=== PATIENT | male | born 1970 | race African-American/Black ===

== ENCOUNTER 2022-05-05 12:58 | Emergency (ER) | payer BC, SELFPAY ==
--- NOTE | 2022-05-05 13:59 | RAD REPORT ---
EXAM DESCRIPTION: RAD - Chest Single View - 05/05/2022 1:43 pm CLINICAL HISTORY: Cough COMPARISON: No comparisons FINDINGS: Lines: None. Lungs: No evidence of edema or pneumonia. Pleural: No significant pleural effusions or pneumothorax. Cardiac: The heart size is within normal limits. Mediastinum: Within normal limits. Bones: No acute fractures. Other: None IMPRESSION: No acute cardiopulmonary disease.
[2022-05-05 14:01] LABS: Absolute Lymphocytes (CBC) 1.3 K/uL (0.7-4.9); Hematocrit 46.4 % (39.6-49.0); Lymphocytes % 22.5 % (15.3-44.8); MCV 85.9 fL (80-100); MPV 8.3 fL (7.6-11.3)
[2022-05-05 14:21] LABS: Albumin 3.9 g/dL (3.4-5.0); Bilirubin Direct 0.1 mg/dL (0-0.2); Bilirubin Total 0.4 mg/dL (0.2-1.0); Potassium 4.1 mmol/L (3.5-5.1); Protein, Total 7.5 g/dL (6.4-8.2); Troponin High Sensitivity 4.8 pg/mL (<58.9)
[2022-05-05 15:52] LABS: SARS-COV-2 RT PCR POSITIVE (NEGATIVE)
--- NOTE | 2022-05-05 15:59 | ER ---
Nurse's Notes [facility] Name: Jaydon Jolly Jr Age: 52 yrs Sex: Male : 1970 Arrival Date: 05/05/2022 Time: 12:59 Bed 13 Private MD: Diagnosis: COVID-19, Hypertension, Fatigue Presentation: 05/05 13:21 Chief complaint: Patient states: he has been having high blood pressure, increased ap3 fatigue, intermittent chest pain, cough and congestion for "a couple weeks" patient also reports body aches. Coronavirus screen: At this time, the client does not indicate any symptoms associated with coronavirus-19. Ebola Screen: No symptoms or risks identified at this time. Initial Sepsis Screen: Does the patient meet any 2 criteria? No. Patient's initial sepsis screen is negative. Does the patient have a suspected source of infection? No. Patient's initial sepsis screen is negative. Risk Assessment: Do you want to hurt yourself or someone else? Patient reports no desire to harm self or others. Onset of symptoms is unknown. 13:21 Method Of Arrival: Ambulatory ap3 13:21 Acuity: CASTILLO 3 ap3 Triage Assessment: 13:24 General: Appears in no apparent distress. Behavior is calm, cooperative, appropriate ap3 for age. Pain: Complains of pain in chest, and generalized body aches. Neuro: Level of Consciousness is awake, alert, obeys commands, Oriented to person, place, time, situation, Gait is steady. Cardiovascular: Reports chest pain, Denies shortness of breath, Patient's skin is warm and dry. Respiratory: Airway is patent Respiratory effort is even, unlabored, Respiratory pattern is regular, symmetrical. Historical: - Allergies: 13:23 No Known Allergies; ap3 - Home Meds: 13:23 metoprolol tartrate 25 mg Oral tab [Active]; lisinopril 20 mg Oral tab [Active]; ap3 - PMHx: 13:23 Hypertensive disorder; Hypercholesterolemia; ap3 - Immunization history:: Client reports having NOT received the Covid vaccine. Flu vaccine is not up to date. - Social history:: Smoking status: Patient denies any tobacco usage or history of. Screenin:25 Humpty Dumpty Scale Fall Assessment Tool (age< 18yrs) Age 13 years and above (1 pt). ap3 14:07 [facility] ED Fall Risk Assessment (Adult) History of falling in the last 3 months, ko1 including since admission No falls in past 3 months (0 pts) Confusion or Disorientation No (0 pts) Intoxicated or Sedated No (0 pts) Impaired Gait No (0 pts) Mobility Assist Device Used No (0 pt) Altered Elimination No (0 pt) Score/Fall Risk Level 0 - 2 = Low Risk. Abuse screen: Denies threats or abuse. Denies injuries from another. Nutritional screening: No deficits noted. Tuberculosis screening: No symptoms or risk factors identified. Fall Risk No fall in past 12 months (0 pts). Assessment: 13:50 General: Appears in no apparent distress. comfortable, Behavior is calm, cooperative, ko1 appropriate for age. Pain: Pain does not radiate. Pain began gradually. Neuro: No deficits noted. Cardiovascular: Reports chest pain, fatigue. Respiratory: No deficits noted. GI: No deficits noted. : No deficits noted. EENT: No deficits noted. Derm: No deficits noted. Musculoskeletal: No deficits noted. Vital Signs: 13:21 BP 125 / 91; Pulse 89; Resp 18; Temp 98.7(O); Pulse Ox 99% ; Weight 104.33 kg; Height 5 ap3 ft. 8 in. (172.72 cm); Pain 6/10; 14:07 BP 117 / 91; ko1 15:26 BP 114 / 78; Pulse 82; Pulse Ox 100% ; ko1 16:07 BP 115 / 82; Pulse 80; ko1 13:21 Body Mass Index 34.97 (104.33 kg, 172.72 cm) ap3 ED Course: 12:59 Patient arrived in ED. as 13:19 Aga Plaza MD is Attending Physician. sp3 13:23 Triage completed. ap3 13:25 Arm band placed on right wrist. ap3 13:25 Patient maintains SpO2 saturation greater than 95% on room air. ap3 13:26 Elmira Davis, JESSIE is Primary Nurse. ko1 13:45 XRAY Chest (1 view) In Process Unspecified. EDMS 13:50 Inserted saline lock: 20 gauge in left antecubital area, using aseptic technique. Blood ko1 collected. 13:53 Basic Metabolic Panel Sent. ko1 13:54 CBC with Diff Sent. ko1 13:54 LFT's Sent. ko1 13:54 NT PRO-BNP Sent. ko1 13:54 Troponin HS Sent. ko1 13:54 COVID-19/FLU A+B Sent. ko1 14:07 Patient has correct armband on for positive identification. Bed in low position. Call ko1 light in reach. Side rails up X 1. Client placed on continuous cardiac and pulse oximetry monitoring. NIBP monitoring applied. manager monitoring on. 14:07 No provider procedures requiring assistance completed. ko1 16:07 IV discontinued, intact, bleeding controlled, No redness/swelling at site. Pressure ko1 dressing applied. Administered Medications: No medications were administered Medication: 13:50 VIS not applicable for this client. ko1 Outcome: 15:58 Discharge ordered by . sp3 16:07 Discharged to home ambulatory. ko1 16:07 Condition: stable 16:07 Discharge instructions given to patient, Instructed on discharge instructions, follow up and referral plans. Demonstrated understanding of instructions, follow-up care. 16:08 Patient left the ED. ko1 Signatures: Dispatcher [employer] Sepideh Gupta Amanda, RN RN ap3 Aga Plaza MD MD sp3 Elmira Davis RN RN ko1
--- NOTE | 2022-05-05 15:59 | EDPHYS ---
Physician Documentation [facility] Name: Jaydon Jolly Jr Age: 52 yrs Sex: Male : 1970 Arrival Date: 05/05/2022 Time: 12:59 Bed 13 Private MD: ED Physician Aga Plaza HPI: 05/05 13:49 This 52 yrs old Black Male presents to ER via Ambulatory with complaints of High Blood sp3 Pressure, Chest Pain, Fatigue. 13:49 52-year-old male with history of hypertension and hyperlipidemia from [address], here visiting in [place] presents with chief complaint chest pain for the last 48 hours with off-and-on cough for approximately 2 weeks. Patient had a positive COVID 19 home test 2 weeks ago. He also complains of fatigue and episodic hypertension particularly at night with systolics increasing into the 180 range. Currently the chest pain is mild to absent denies left arm pain or numbness, jaw pain, nausea, epigastric pain, back pain, shortness of breath, fever, any other symptoms on ROS at this time. He denies history of ACS, STEMI, or any heart disease. No history of pulmonary embolism and patient does not smoke.. Historical: - Allergies: 13:23 No Known Allergies; ap3 - Home Meds: 13:23 metoprolol tartrate 25 mg Oral tab [Active]; lisinopril 20 mg Oral tab [Active]; ap3 - PMHx: 13:23 Hypertensive disorder; Hypercholesterolemia; ap3 - Immunization history:: Client reports having NOT received the Covid vaccine. Flu vaccine is not up to date. - Social history:: Smoking status: Patient denies any tobacco usage or history of. ROS: 13:51 Constitutional: Negative for fever, chills, and weight loss, Eyes: Negative for injury, sp3 pain, redness, and discharge, ENT: Negative for injury, pain, and discharge, Neck: Negative for injury, pain, and swelling, Abdomen/GI: Negative for abdominal pain, nausea, vomiting, diarrhea, and constipation, Back: Negative for injury and pain, MS/Extremity: Negative for injury and deformity, Skin: Negative for injury, rash, and discoloration, Neuro: Negative for headache, weakness, numbness, tingling, and seizure, Psych: Negative for depression, anxiety, suicide ideation, homicidal ideation, and hallucinations, Allergy/Immunology: Negative for hives, rash, and allergies, Endocrine: Negative for neck swelling, polydipsia, polyuria, polyphagia, and marked weight changes. 13:51 All other systems are negative. Exam: 13:51 Constitutional: This is a well developed, well nourished patient who is awake, alert, sp3 and in no acute distress. Head/Face: Normocephalic, atraumatic. Eyes: Pupils equal round and reactive to light, extra-ocular motions intact. Lids and lashes normal. Conjunctiva and sclera are non-icteric and not injected. Cornea within normal limits. Periorbital areas with no swelling, redness, or edema. ENT: Nares patent. No nasal discharge, no septal abnormalities noted. External auditory canals are clear. Oropharynx with no redness, swelling, or masses, exudates, or evidence of obstruction, uvula midline. Mucous membranes moist. Neck: Trachea midline, no thyromegaly or masses palpated, and no cervical lymphadenopathy. Supple, full range of motion without nuchal rigidity, or vertebral point tenderness. No Meningismus. Chest/axilla: Normal chest wall appearance and motion. Nontender with no deformity. No lesions are appreciated. Cardiovascular: Regular rate and rhythm with a normal S1 and S2. No gallops, murmurs, or rubs. Normal PMI, no JVD. No pulse deficits. Abdomen/GI: Soft, non-tender, with normal bowel sounds. No distension or tympany. No guarding or rebound. No evidence of tenderness throughout. Back: No spinal tenderness. No costovertebral tenderness. Full range of motion. Skin: Warm, dry with normal turgor. Normal color with no rashes, no lesions, and no evidence of cellulitis. MS/ Extremity: Pulses equal, no cyanosis. Neurovascular intact. Full, normal range of motion. Neuro: Awake and alert, GCS 15, oriented to person, place, time, and situation. Cranial nerves II-XII grossly intact. Motor strength 5/5 in all extremities. Sensory grossly intact. Cerebellar exam normal. Normal gait. Psych: Awake, alert, with orientation to person, place and time. Behavior, mood, and affect are within normal limits. 13:51 Respiratory: Scattered wheezes without any other findings.. Vital Signs: 13:21 BP 125 / 91; Pulse 89; Resp 18; Temp 98.7(O); Pulse Ox 99% ; Weight 104.33 kg; Height 5 ap3 ft. 8 in. (172.72 cm); Pain 6/10; 14:07 BP 117 / 91; ko1 15:26 BP 114 / 78; Pulse 82; Pulse Ox 100% ; ko1 16:07 BP 115 / 82; Pulse 80; ko1 13:21 Body Mass Index 34.97 (104.33 kg, 172.72 cm) ap3 MDM: 13:28 Patient medically screened. sp3 13:51 Data reviewed: vital signs, nurses notes, lab test result(s), EKG, radiologic studies. sp3 ED course: 52-year-old male with history of hypertension and now with a resolved or resolving chest pain. Patient also had COVID-19 several weeks ago. Differential diagnosis includes symptoms related to COVID-19, other viral syndrome, pneumonia, ACS, CHF, among others. Clinically have ruled out sepsis, shock, PE, thoracic aortic dissection, or any other critical findings at this time. Work-up will include EKG, chest x-ray, laboratory values and COVID-19 and flu swabs. Blood pressure here is normal at 106/86 patient is in no acute distress.. 15:56 ED course: Patient has positive COVID-19 and negative flu. Laboratory values reviewed sp3 and demonstrates creatinine of 1.37. I have commented to patient that he needs to get back to his PCP to adjust his blood pressure medications and repeat his creatinine levels. Remainder of blood work is negative and chest x-ray is clear. Will discharge patient home at this time with general COVID-19 precautions and instructions to obtain 2 new upper arm humerus level blood pressure cuffs to get good clean data record for his PCP to better manage his blood pressure. Here his blood pressures been in the 10 6-1 30 range systolically and has not required any intervention. All questions were answered and patient was grateful for his care today.. 05/05 13:27 Order name: Basic Metabolic Panel; Complete Time: 14:53 sp3 05/05 13:27 Order name: CBC with Diff; Complete Time: 14:53 sp3 05/05 13:27 Order name: LFT's; Complete Time: 14:53 sp3 05/05 13:27 Order name: NT PRO-BNP; Complete Time: 14:53 sp3 05/05 13:27 Order name: Troponin HS; Complete Time: 14:53 sp3 05/05 13:27 Order name: COVID-19/FLU A+B sp3 05/05 13:27 Order name: XRAY Chest (1 view); Complete Time: 14:53 sp3 05/05 13:27 Order name: EKG; Complete Time: 13:28 sp3 05/05 13:27 Order name: Cardiac monitoring; Complete Time: 13:38 sp3 05/05 13:27 Order name: EKG - Nurse/Tech; Complete Time: 13:38 sp3 05/05 13:27 Order name: IV Saline Lock; Complete Time: 13:53 sp3 05/05 13:27 Order name: Labs collected and sent; Complete Time: 13:53 sp3 05/05 13:27 Order name: O2 Sat Monitoring; Complete Time: 13:38 sp3 Administered Medications: No medications were administered Disposition Summary: 05/05/22 15:58 Discharge Ordered Location: Home sp3 Condition: Stable sp3 Diagnosis - COVID-19, Hypertension, Fatigue sp3 Followup: sp3 - With: Private Physician - When: Upon discharge from the Emergency Department - Reason: Continuance of care Discharge Instructions: - Discharge Summary Sheet sp3 - Hypertension, Adult sp3 - COVID-19 sp3 Forms: - Medication Reconciliation Form sp3 - Thank You Letter sp3 - Antibiotic Education sp3 - Prescription Opioid Use sp3 Signatures: Dispatcher [employer] EDSandra Porter RN RN ap3 Aga Plaza MD MD sp3 Corrections: (The following items were deleted from the chart) 13:54 13:51 ED course: 52-year-old male with history of hypertension and now with a resolved sp3 or resolving chest pain. Patient also had COVID-19 several weeks ago. Differential diagnosis includes symptoms related to COVID-19, other viral syndrome, pneumonia, ACS, CHF, among others. Clinically have ruled out sepsis, shock, PE, thoracic aortic dissection, or any other critical findings at this time.. sp3
[2022-05-05 16:42] VITALS: TEMP 98.7
[2022-05-05 16:53] VITALS: O2SAT 100
[2022-05-05 16:54] VITALS: BP 115/82
--- NOTE | 2022-05-06 12:53 | EKG ---
Test Date: 2022-05-05 Test Time: 13:36:24 Management Developer: PING MEASUREMENT RESULTS: Intervals: Rate: 84 AL: 160 QRSD: 82 QT: 358 QTc: 423 Donna: P: 65 AL: 160 QRS: -16 T: 32 INTERPRETIVE STATEMENTS: Normal sinus rhythm Normal ECG No previous ECG available for comparison Electronically Signed On 05-06-22 12:51:49 SCOUTS by Donaldo Damon
== END 2022-05-05 16:08 | disposition home or self-care (01) ==
LOC: ER 12:58
DX: U07.1 COVID-19 (principal); R53.83 Other fatigue; I10 Essential (primary) hypertension
CPT/HCPCS: 93005; 85025; 80048; 36415; 80076; 84484; 83880; 0240U; 71045; 99284